=== PATIENT | male | born 1960 | race African-American/Black ===

== ENCOUNTER 2017-10-28 13:25 | Emergency (ER) | payer SELFPAY ==
[~2017-10-28] VITALS: Ht 185.4 cm; Wt 138.0 kg
[2017-10-28 13:28] VITALS: BP 150/81
[2017-10-28] MEDS ORDERED: LIDOCAINE-MPF 2% ,5ML ONE (13:54)
[2017-10-28] MEDS ORDERED: LIDOCAINE 2%, 20ML SQ ONE (14:00)
== END 2017-10-28 13:53 | disposition home or self-care (01) ==
LOC: ED 13:45
DX: L02.31 Cutaneous abscess of buttock (principal); I10 Essential (primary) hypertension; E11.9 Type 2 diabetes mellitus without complications
CPT/HCPCS: 10060; 99283; J3490

== ENCOUNTER 2017-11-26 18:46 | Inpatient (IN) | payer MEDICAID, OTHER ==
[~2017-11-26] VITALS: Ht 185.4 cm; Wt 135.8 kg
[2017-11-26] MEDS ORDERED: MORPHINE SULFATE 4 MG/ML, 1ML ONE (20:17)
[2017-11-26] MEDS ORDERED: ONDANSETRON 2MG/ML, 2ML ONE (20:17)
[2017-11-26] MEDS ORDERED: SODIUM CHLORIDE FLUSH 10ML SYR IVF ONE (20:30)
[2017-11-26] MEDS ORDERED: SODIUM CHLORIDE 0.9% 1,000ML IVBOLUS ONE (20:30)
[2017-11-26] MEDS ORDERED: ONDANSETRON 2MG/ML, 2ML IVPush ONE (20:30)
[2017-11-26] MEDS ORDERED: MORPHINE SULFATE 4 MG/ML, 1ML IVPush PRN (20:30)
[2017-11-26 20:37] LABS: MEAN CORPUSCULAR HEMOGLOBIN 30.8 pg (27.5-34.5); MEAN CORPUSCULAR HGB CONC 33.9 g/dL (33.2-36.2); MEAN CORPUSCULAR VOLUME 90.6 fL (81-97); MEAN PLATELET VOLUME 10.7 fL (7.4-10.4); PLATELET COUNT 249 x10^3/uL (130-400); RED BLOOD COUNT 5.24 x10^6/uL (4.38-5.82); RED CELL DISTRIBUTION WIDTH 13.7 % (9.4-14.8)
[2017-11-26 20:46] LABS: ALANINE AMINOTRANSFERASE 212 U/L (12-78); ALBUMIN 4.4 g/dL (3.4-5.0); ANION GAP 11 mmol/L (5-15); CALCIUM 9.7 mg/dL (8.5-10.1); CHLORIDE 107 mmol/L (98-107); CREATININE 1.71 mg/dL (0.7-1.3)
[2017-11-26 20:49] LABS: ALKALINE PHOSPHATASE 93 U/L (45-117); BILIRUBIN,TOTAL 3.5 mg/dL (0.2-1.0); TOTAL PROTEIN 8.2 g/dL (6.4-8.2)
[2017-11-26 21:03] LABS: BASOPHILS # (AUTO) 0.02 x10^3/uL (0-0.1); BASOPHILS % (AUTO) 0 % (0-1); EOSINOPHILS # (AUTO) 0.01 x10^3/uL (0-0.4); EOSINOPHILS % (AUTO) 0 % (1-7); LYMPHOCYTES # (AUTO) 1.14 x10^3/uL (1-3.4); LYMPHOCYTES % (AUTO) 7 % (22-44); MD SCAN; MONOCYTES % (AUTO) 10 % (2-9); NEUTROPHILS # (AUTO) 13.96 x10^3/uL (1.8-6.8); NEUTROPHILS % (AUTO) 83 % (42-75)
[2017-11-26] MEDS ORDERED: METF500T5 PO (21:24)
[2017-11-26 21:41] LABS: CULTURE INDICATED? NO; MICROSCOPIC AUTO
[2017-11-26] MEDS ORDERED: HYPERTENSION (21:55)
[2017-11-26] MEDS ORDERED: HIGH CHOLESTROL (21:55)
[2017-11-26] MEDS ORDERED: SODIUM CHLORIDE 0.9% 1,000 ML IV ONE (22:19)
[2017-11-27] MEDS ORDERED: hydrALAzine 20 MG/ML, 1ML IVPush PRN
[2017-11-27] MEDS ORDERED: ONDANSETRON ODT 4 MG PO PRN
[2017-11-27] MEDS ORDERED: ACETAMINOPHEN 325 MG TABLET PO PRN
[2017-11-27] MEDS ORDERED: TRAZODONE 50MG TABLET PO PRN
[2017-11-27] MEDS ORDERED: ONDANSETRON 2MG/ML, 2ML IVPush PRN
[2017-11-27 00:27] VITALS: BP 138/80
[2017-11-27] MEDS: LACTATED RINGERS 1,000 ML IV SCH ×3 (00:38→23:15)
[2017-11-27] MEDS: HEPARIN 5,000 UNITS/ML, 1ML SQ SCH ×3 (00:38→17:21)
[2017-11-27] MEDS ORDERED: IBUP100O32 PO (00:59)
[2017-11-27] MEDS ORDERED: ASPI-515 PO (00:59)
[2017-11-27 05:53] LABS: CULTURE INDICATED? YES; MICROSCOPIC INDICATED
[2017-11-27 06:00] LABS: ALBUMIN 3.3 g/dL (3.4-5.0); ANION GAP 9 mmol/L (5-15); CALCIUM 7.7 mg/dL (8.5-10.1); CHLORIDE 107 mmol/L (98-107)
[2017-11-27 06:06] LABS: ALANINE AMINOTRANSFERASE 207 U/L (12-78); ALKALINE PHOSPHATASE 75 U/L (45-117); BILIRUBIN,TOTAL 3.8 mg/dL (0.2-1.0); CHOL/HDL RATIO 2.9; CHOLESTEROL, TOTAL 102 mg/dL (140-239); HDL CHOL % 34 % (26-37); HDL CHOLESTEROL (DIRECT) 35 mg/dL (40-60); LDL CHOLESTEROL,CALCULATED 42 mg/dL (54-169); LDL/HDL RATIO 1.2 (0.5-3.0); TOTAL PROTEIN 6.4 g/dL (6.4-8.2); TRIGLYCERIDES 126 mg/dL (50-200); VLDL CHOLESTEROL 25 mg/dL (0-25)
[2017-11-27 06:18] LABS: BASOPHILS # (AUTO) 0.01 x10^3/uL (0-0.1); BASOPHILS % (AUTO) 0 % (0-1); EOSINOPHILS # (AUTO) 0.01 x10^3/uL (0-0.4); EOSINOPHILS % (AUTO) 0 % (1-7); LYMPHOCYTES # (AUTO) 0.75 x10^3/uL (1-3.4); LYMPHOCYTES % (AUTO) 8 % (22-44); MD NO; MEAN CORPUSCULAR HEMOGLOBIN 30.5 pg (27.5-34.5); MEAN CORPUSCULAR HGB CONC 33.9 g/dL (33.2-36.2); MEAN CORPUSCULAR VOLUME 90.2 fL (81-97); MEAN PLATELET VOLUME 9.5 fL (7.4-10.4); MONOCYTES # (AUTO) 0.82 x10^3/uL (0.2-0.8); MONOCYTES % (AUTO) 8 % (2-9); NEUTROPHILS # (AUTO) 8.27 x10^3/uL (1.8-6.8); NEUTROPHILS % (AUTO) 84 % (42-75); PLATELET COUNT 158 x10^3/uL (130-400); RED BLOOD COUNT 4.24 x10^6/uL (4.38-5.82); RED CELL DISTRIBUTION WIDTH 13.4 % (9.4-14.8)
[2017-11-27 08:20] VITALS: BP 119/75
[2017-11-27] MEDS: INSULIN LISPRO 100 UNITS/ML, PEN SQ-INSULIN SCH ×4 (09:41→21:46)
[2017-11-27] MEDS: METRONIDAZOLE PMX 500MG/100ML 100 ML IV SCH ×2 (11:30→19:29)
[2017-11-27] MEDS: CEFTRIAXONE 2 GM in SODIUM CHLORIDE 0.9% 50 ML IV SCH (13:01)
[2017-11-27 13:07] VITALS: BP 103/64
[2017-11-27] MEDS ORDERED: GLIP10TA13 PO (15:58)
[2017-11-27] MEDS ORDERED: ATOR20TA9 PO (16:06)
[2017-11-27] MEDS ORDERED: LISI-420 PO (16:06)
[2017-11-27] MEDS ORDERED: HYDR25TA6 PO (16:06)
[2017-11-27] MEDS ORDERED: METF10003 PO (16:06)
[2017-11-27] MEDS ORDERED: IBUP-1223 PO (16:06)
[2017-11-27 19:45] VITALS: BP 111/70
[2017-11-28 00:52] VITALS: BP 127/78
[2017-11-28] MEDS: HEPARIN 5,000 UNITS/ML, 1ML SQ SCH ×3 (00:54→16:01)
[2017-11-28] MEDS: METRONIDAZOLE PMX 500MG/100ML 100 ML IV SCH ×3 (04:15→19:54)
[2017-11-28 04:55] LABS: BASOPHILS # (AUTO) 0.05 x10^3/uL (0-0.1); BASOPHILS % (AUTO) 1 % (0-1); EOSINOPHILS # (AUTO) 0.12 x10^3/uL (0-0.4); EOSINOPHILS % (AUTO) 2 % (1-7); LYMPHOCYTES # (AUTO) 0.88 x10^3/uL (1-3.4); LYMPHOCYTES % (AUTO) 14 % (22-44); MD NO; MEAN CORPUSCULAR HGB CONC 34.1 g/dL (33.2-36.2); MEAN CORPUSCULAR VOLUME 90.9 fL (81-97); MEAN PLATELET VOLUME 9.6 fL (7.4-10.4); MONOCYTES # (AUTO) 0.57 x10^3/uL (0.2-0.8); MONOCYTES % (AUTO) 9 % (2-9); NEUTROPHILS # (AUTO) 4.58 x10^3/uL (1.8-6.8); NEUTROPHILS % (AUTO) 74 % (42-75); PLATELET COUNT 146 x10^3/uL (130-400); RED BLOOD COUNT 4.36 x10^6/uL (4.38-5.82); RED CELL DISTRIBUTION WIDTH 13.4 % (9.4-14.8)
[2017-11-28 04:59] LABS: ALANINE AMINOTRANSFERASE 261 U/L (12-78); ALBUMIN 3.4 g/dL (3.4-5.0); ANION GAP 5 mmol/L (5-15); CALCIUM 8.4 mg/dL (8.5-10.1); CHLORIDE 107 mmol/L (98-107); CREATININE 1.43 mg/dL (0.7-1.3)
[2017-11-28 05:02] LABS: ALKALINE PHOSPHATASE 87 U/L (45-117); BILIRUBIN,TOTAL 3.9 mg/dL (0.2-1.0); HEMOGLOBIN A1C 9.1 % (4.2-6.3); TOTAL PROTEIN 6.8 g/dL (6.4-8.2)
[2017-11-28] MEDS: INSULIN LISPRO 100 UNITS/ML, PEN SQ-INSULIN SCH ×4 (07:00→20:27)
[2017-11-28] MEDS ORDERED: ERGOCALCIFEROL 50,000 UNIT CAPSULE PO SCH (07:00)
[2017-11-28 07:57] VITALS: BP 152/88
[2017-11-28 08:08] LABS: INTERNATIONAL NORMALIZED RATIO 1.09 (0.93-1.1); PROTHROMBIN TIME 11.3 Seconds (9.6-11.5)
[2017-11-28] MEDS: INSULIN GLARGINE 100 UNITS/ML, PEN SQ-INSULIN SCH ×2 (08:36→08:39)
[2017-11-28] MEDS: LACTATED RINGERS 1,000 ML IV SCH ×2 (08:37→16:02)
[2017-11-28 12:31] VITALS: BP 151/79
[2017-11-28 18:59] VITALS: BP 161/79
[2017-11-29] MEDS: CEFTRIAXONE 2 GM in SODIUM CHLORIDE 0.9% 50 ML IV SCH (00:34)
[2017-11-29] MEDS: HEPARIN 5,000 UNITS/ML, 1ML SQ SCH ×3 (00:34→11:33)
[2017-11-29] MEDS: LACTATED RINGERS 1,000 ML IV SCH ×3 (00:35→16:09)
[2017-11-29 00:43] VITALS: BP 138/83
[2017-11-29] MEDS: METRONIDAZOLE PMX 500MG/100ML 100 ML IV SCH ×3 (04:53→19:54)
[2017-11-29 05:03] LABS: ALBUMIN 3.2 g/dL (3.4-5.0); ANION GAP 8 mmol/L (5-15); CALCIUM 8.3 mg/dL (8.5-10.1); CHLORIDE 106 mmol/L (98-107)
[2017-11-29 05:07] LABS: ALANINE AMINOTRANSFERASE 188 U/L (12-78); ALKALINE PHOSPHATASE 90 U/L (45-117); BILIRUBIN,TOTAL 2.5 mg/dL (0.2-1.0); TOTAL PROTEIN 6.4 g/dL (6.4-8.2)
[2017-11-29 05:12] LABS: BASOPHILS # (AUTO) 0.03 x10^3/uL (0-0.1); BASOPHILS % (AUTO) 1 % (0-1); EOSINOPHILS # (AUTO) 0.18 x10^3/uL (0-0.4); EOSINOPHILS % (AUTO) 3 % (1-7); LYMPHOCYTES # (AUTO) 1.06 x10^3/uL (1-3.4); LYMPHOCYTES % (AUTO) 20 % (22-44); MD NO; MEAN CORPUSCULAR HEMOGLOBIN 31.3 pg (27.5-34.5); MEAN CORPUSCULAR HGB CONC 34.5 g/dL (33.2-36.2); MEAN CORPUSCULAR VOLUME 90.8 fL (81-97); MEAN PLATELET VOLUME 9.9 fL (7.4-10.4); MONOCYTES # (AUTO) 0.74 x10^3/uL (0.2-0.8); MONOCYTES % (AUTO) 14 % (2-9); NEUTROPHILS # (AUTO) 3.35 x10^3/uL (1.8-6.8); NEUTROPHILS % (AUTO) 63 % (42-75); PLATELET COUNT 130 x10^3/uL (130-400); RED CELL DISTRIBUTION WIDTH 13.1 % (9.4-14.8)
[2017-11-29] MEDS: INSULIN LISPRO 100 UNITS/ML, PEN SQ-INSULIN SCH ×4 (07:00→20:21)
[2017-11-29 07:34] VITALS: BP 160/88
[2017-11-29] MEDS: INSULIN GLARGINE 100 UNITS/ML, PEN SQ-INSULIN SCH (07:37)
[2017-11-29] MEDS ORDERED: FENTANYL PF 250 MCG/5ML ONE (12:52)
[2017-11-29] MEDS ORDERED: MIDAZOLAM 1 MG/ML, 2ML ONE (12:52)
[2017-11-29] MEDS ORDERED: EPINEPHRINE 1 MG/ML, 1ML ONE (12:52)
[2017-11-29] MEDS ORDERED: BUPIVACAINE/PF 0.5% ONE (12:52)
[2017-11-29] MEDS ORDERED: ACETAMINOPHEN 500 MG TABLET ONE (13:13)
[2017-11-29] MEDS ORDERED: GABAPENTIN 300 MG CAPSULE ONE (13:13)
[2017-11-29] MEDS ORDERED: LABETALOL 5MG/ML, 20ML IV PRN (13:30)
[2017-11-29] MEDS ORDERED: FENTANYL PF 100 MCG/2ML IV PRN (13:30)
[2017-11-29] MEDS ORDERED: ONDANSETRON 2MG/ML, 2ML IV PRN (13:30)
[2017-11-29] MEDS ORDERED: OXYcodone 5 MG/5 ML ORAL.SOL UDC PO PRN (13:30)
[2017-11-29] MEDS ORDERED: hydrALAzine 20 MG/ML, 1ML IV PRN (13:30)
[2017-11-29] MEDS ORDERED: ACETAMINOPHEN 500 MG TABLET PO ONE (13:30)
[2017-11-29] MEDS ORDERED: GABAPENTIN 300 MG CAPSULE PO ONE (13:30)
[2017-11-29 13:40] VITALS: BP 161/93
[2017-11-29] MEDS ORDERED: PROPOFOL 10 MG/ML, 20ML ONE (13:56)
[2017-11-29] MEDS ORDERED: ROCURONIUM 10MG/ML,5ML ONE (13:56)
[2017-11-29] MEDS ORDERED: CEFAZOLIN 1,000 MG ONE (13:56)
[2017-11-29] MEDS ORDERED: GLYCOPYRROLATE 0.2MG/1ML, 5ML ONE (13:56)
[2017-11-29] MEDS ORDERED: SUCCINYLCHOLINE 20 MG/ML, 10ML ONE (13:56)
[2017-11-29] MEDS ORDERED: DEXAMETHASONE 4 MG/ML, 1ML ONE (13:56)
[2017-11-29] MEDS ORDERED: NEOSTIGMINE 1 MG/ML, 10ML ONE (13:56)
[2017-11-29] MEDS ORDERED: ONDANSETRON 2MG/ML, 2ML ONE (13:56)
[2017-11-29] MEDS ORDERED: HYDROmorphone 2 MG/ML, 1ML ONE (14:40)
[2017-11-29] MEDS ORDERED: OXYcodone 5 MG/5 ML ORAL.SOL UDC ONE (14:40)
[2017-11-29] MEDS: HYDROmorphone 1 MG/ML, 1ML IV PRN ×2 (14:44→14:55)
[2017-11-29] MEDS: morphine SULFATE 10 MG/ML, 1ML IVPush PRN ×2 (19:53→21:37)
[2017-11-29 20:00] VITALS: BP 151/92
[2017-11-29 20:11] VITALS: BP 164/118
[2017-11-30] MEDS ORDERED: CEFTRIAXONE 2 GM in SODIUM CHLORIDE 0.9% 50 ML IV SCH
[2017-11-30] MEDS: morphine SULFATE 10 MG/ML, 1ML IVPush PRN ×4 (00:28→12:01)
[2017-11-30] MEDS: HEPARIN 5,000 UNITS/ML, 1ML SQ SCH ×2 (00:28→08:39)
[2017-11-30] MEDS: LACTATED RINGERS 1,000 ML IV SCH ×2 (00:28→12:05)
[2017-11-30 01:18] VITALS: BP 153/91
[2017-11-30] MEDS: METRONIDAZOLE PMX 500MG/100ML 100 ML IV SCH ×2 (04:37→12:03)
[2017-11-30 05:19] LABS: CHLORIDE 105 mmol/L (98-107)
[2017-11-30 05:27] LABS: ALANINE AMINOTRANSFERASE 232 U/L (12-78); ALBUMIN 3.2 g/dL (3.4-5.0); ALKALINE PHOSPHATASE 111 U/L (45-117); ANION GAP 10 mmol/L (5-15); BILIRUBIN,TOTAL 1.7 mg/dL (0.2-1.0); CALCIUM 8.3 mg/dL (8.5-10.1); CREATININE 0.96 mg/dL (0.7-1.3); TOTAL PROTEIN 7.2 g/dL (6.4-8.2)
[2017-11-30 07:52] LABS: BASOPHILS # (AUTO) 0.04 x10^3/uL (0-0.1); BASOPHILS % (AUTO) 1 % (0-1); EOSINOPHILS # (AUTO) 0.02 x10^3/uL (0-0.4); EOSINOPHILS % (AUTO) 0 % (1-7); LYMPHOCYTES # (AUTO) 0.68 x10^3/uL (1-3.4); LYMPHOCYTES % (AUTO) 8 % (22-44); MD NO; MEAN CORPUSCULAR HEMOGLOBIN 30.8 pg (27.5-34.5); MEAN CORPUSCULAR HGB CONC 33.9 g/dL (33.2-36.2); MEAN CORPUSCULAR VOLUME 90.7 fL (81-97); MEAN PLATELET VOLUME 10.2 fL (7.4-10.4); MONOCYTES # (AUTO) 1.01 x10^3/uL (0.2-0.8); MONOCYTES % (AUTO) 12 % (2-9); NEUTROPHILS # (AUTO) 6.45 x10^3/uL (1.8-6.8); NEUTROPHILS % (AUTO) 79 % (42-75); PLATELET COUNT 140 x10^3/uL (130-400); RED BLOOD COUNT 4.73 x10^6/uL (4.38-5.82); RED CELL DISTRIBUTION WIDTH 13.6 % (9.4-14.8)
[2017-11-30 07:55] VITALS: BP 144/88
[2017-11-30] MEDS: INSULIN LISPRO 100 UNITS/ML, PEN SQ-INSULIN SCH ×2 (08:41→12:00)
[2017-11-30] MEDS: INSULIN GLARGINE 100 UNITS/ML, PEN SQ-INSULIN SCH (08:41)
[2017-11-30 13:22] VITALS: BP 160/96
== END 2017-11-30 15:34 | disposition home or self-care (01) | DRG 853 ==
LOC: ED 21:03 → EDIP 23:35 → SUATTDRO 23:53 → 3NE 11-27 00:25 → 3NW 11-27 02:29 → DCLOUNGE 11-30 15:17
PROVIDERS: ADMIT Hospitalist; ATTEND Internal Medicine
PROC: 0T9B70Z Drainage of Bladder with Drainage Device, Via Natural or Artificial Opening (ICD-10-PCS; 2017-11-26)
PROC: 0FT44ZZ Resection of Gallbladder, Percutaneous Endoscopic Approach (ICD-10-PCS; principal; 2017-11-29 14:00)
DX: A41.9 Sepsis, unspecified organism (principal); E11.00 Type 2 diabetes mellitus with hyperosmolarity without nonketotic hyperglycemic-hyperosmolar coma (NKHHC); K85.10 Biliary acute pancreatitis without necrosis or infection; N17.0 Acute kidney failure with tubular necrosis; N39.0 Urinary tract infection, site not specified; K80.61 Calculus of gallbladder and bile duct with cholecystitis, unspecified, with obstruction; E72.51 Non-ketotic hyperglycinemia; E66.01 Morbid (severe) obesity due to excess calories; E78.00 Pure hypercholesterolemia, unspecified; E78.5 Hyperlipidemia, unspecified; F17.210 Nicotine dependence, cigarettes, uncomplicated; I10 Essential (primary) hypertension; J44.9 Chronic obstructive pulmonary disease, unspecified; R56.9 Unspecified convulsions; M19.90 Unspecified osteoarthritis, unspecified site
CPT/HCPCS: 36415; 99285; J3490; 74181; 76700; 80053; 80061; 81001; 82306; 82962; 83036; 83690; 83735; 84100; 85025; 85610; 87040; 87086; 88304; 96361; 96374; 96375; J0171; J0690; J0696; J1100; J1170; J1644; J2250; J2405; J2704; J2710; J3010; J0330; J1815; J2270; J7030; J7120